=== PATIENT | female | born 1950 | race Two or more races ===

== ENCOUNTER 2019-04-09 13:43 | Emergency (ER) | payer OTHER ==
[~2019-04-09] VITALS: Ht 157.5 cm; Wt 64.9 kg
[2019-04-09] MEDS ORDERED: LEVOTHYROXINE25 MCG (15:07)
[2019-04-09] MEDS ORDERED: TOPROL XL50 M1 (15:07)
== END 2019-04-09 16:17 | disposition home or self-care (01) ==
LOC: ER 13:43
DX: L02.212 Cutaneous abscess of back [any part, except buttock and flank] (principal)